=== PATIENT | female | born 2000 | race Caucasian/White ===

== ENCOUNTER 2018-11-23 19:08 | Inpatient (IN) | payer MEDICAID ==
[~2018-11-23] VITALS: Ht 165.1 cm; Wt 112.6 kg
[2018-11-23 20:17] VITALS: Ht 165.1 cm; Wt 112.6 kg
[2018-11-23] MEDS ORDERED: PREN-93 PO (20:17)
[2018-11-23 20:18] VITALS: BP 116/71; PULSE 96; RESP 20
[2018-11-23] MEDS ORDERED: LACTATED RINGER'S 1,000 ML IV PRN (20:36)
[2018-11-23] MEDS ORDERED: OXYTOCIN 30 UNITS/LR 500 ML IV PRN (21:00)
[2018-11-23] MEDS ORDERED: IBUPROFEN 600 MG TAB PO PRN (21:00)
[2018-11-23] MEDS ORDERED: AMPICILLIN 2 GM/NS (PMX) 100 ML IV ONE (21:00)
[2018-11-23] MEDS ORDERED: OXYTOCIN 30 UNITS/LR 500 ML IV SCH ×2 (21:00)
[2018-11-23] MEDS ORDERED: MISOPROSTOL 200 MCG TAB PR PRN (21:00)
[2018-11-23] MEDS ORDERED: LIDOCAINE 1% (MPF) 30 ML INJ INJ PRN (21:00)
[2018-11-23] MEDS ORDERED: METHYLERGONOVINE 0.2 MG INJ IM PRN (21:00)
[2018-11-23] MEDS ORDERED: LACTATED RINGER'S 1,000 ML IV ONE (21:00)
[2018-11-23] MEDS ORDERED: BUTORPHANOL 2 MG INJ IV PRN ×2 (21:00)
[2018-11-23] MEDS ORDERED: CARBOPROST 250 MCG INJ IM PRN (21:00)
[2018-11-23] MEDS: LACTATED RINGER'S 1,000 ML IV SCH (21:17)
--- NOTE | 2018-11-23 21:44 | TRIAGE ---
OB Triage Datetime Report Generated by CPN: 11/23/2018 21:44 Datetime: 11/23/2018 21:00 Labor Evaluation Frequency: 2-5 Monitor Mode: External Duration (sec)2399: 30-90 Quality: Mild Pattern: Normal: <= 5 Contractions in 10 Minutes Resting Tone [place]: Relaxed Heart Rate FHR Baseline Rate: 150 Monitor Mode: External US Variability: Moderate 6-25 bpm Accelerations: 15X15 Decelerations: Variable Category: Category II Pain Assessment Pain Scale: 5 Pain Presence: Intermittent Pain Type: Contraction Pain Location: Abdomen Pain Relief Measures: Comfort Measures Datetime: 11/23/2018 20:44 Interventions: IV Bolus Datetime: 11/23/2018 20:30 Labor Evaluation Frequency: irreg Monitor Mode: External Duration (sec)2399: 30-70 Quality: Mild Pattern: Normal: <= 5 Contractions in 10 Minutes Resting Tone [place]: Relaxed Heart Rate FHR Baseline Rate: 160 Monitor Mode: External US Variability: Moderate 6-25 bpm Accelerations: 15X15 Decelerations: Variable Category: Category II Comments: reviewed ny dr ardalan Datetime: 11/23/2018 20:26 Membrane Status: Ruptured Datetime: 11/23/2018 20:24 Vaginal Exam Dilatation (cms): 4.0 Effacement (%): 90 Station: -2 Exam By: margie Membrane Status: Ruptured Amniotic Fluid Amount: Small Vaginal Bleeding: None Pool: Positive Nitrazine: Positive Cervix, Consistency: Soft Cervix, Position: Midposition Presentation 'A': Cephalic Datetime: 11/23/2018 20:14 Assessment Type: Triage Maternal Assessment Level of Consciousness: Keenly Alert, Responsive DTR's/Clonus: DTRs 2+; No Clonus Headache: Denies Blurred Vision: No Respiratory Effort: Unlabored; Regular Rhythm; Equal Expansion Breath Sounds, Left: Clear and Equal Breath Sounds, Right: Clear and Equal Nausea/Vomiting: Denies RUQ Epigastric Pain: Denies Lower Extremities Edema: None Degree: None Upper Extremities Edema: None Degree: None Facial Edema: None Fall Risk Assessment History of Falling: (0) No Secondary Diagnosis: (0) No Ambulatory Aid: (0) Bedrest/Nurse Assist IV Therapy: (0) No Gait: (0) Normal/Bedrest/Immobile Mental Status: (0) Oriented to Own Ability Fall Score: 0 Fall Risk Score Definition: No Risk: No action required Datetime: 11/23/2018 20:13 Pain Assessment Pain Scale: 3 Pain Presence: Intermittent Pain Type: Contraction Pain Location: Abdomen Pain Goal: 3 Pain Relief Measures: Comfort Measures Datetime: 11/23/2018 20:01 Time of Arrival: 11/23/2018 19:00 EGA: 38.3 Arrived By: Ambulatory Arrived From: Home Chief Complaint: vaginal leaking Movement: Present Contractions: Irregular Time Contractions Began: 11/23/2018 18:20 Contractions: 15 MIN Rupture of Membranes: Unsure Vaginal Bleeding: None Vaginal Discharge: Denies Recent Sexual Intercouse: Denies Abdominal Trauma: Not Applicable Patient Complaints: Contractions Time Provider Notified: 11/23/2018 20:26 Provider Notified: ZULMA Initial Plan: RILEY MCCALL
[2018-11-24] MEDS ORDERED: AMPICILLIN 1 GM/NS (PMX) 50 ML IV SCH (01:00)
[2018-11-24] MEDS ORDERED: MINERAL OIL LIGHT 10 ML VIAL TOP ONE (01:30)
--- NOTE | 2018-11-24 01:34 | LDN ---
Date/Time of Note Date/Time of Note DATE: 11/24/18 TIME: 01:34 Delivery Summary November 24, 2018 Weeks of Gestation 38 weeks and 3 days Placenta Delivered: Spontaneously Meconium: Light Episiotomy: No Indication for episiotomy N.A Perineal laceration: 1 Laceration repair: first degree perineal and Bilateral labial laceration noted and repaired using 2-0 and 3-0 chromic Anesthesia type: None Estimated blood loss: 500 Sponge & Needle done & correct: Yes All needle counts correct: Yes Any foreign bodies felt in the: No Infant Delivery Information Sex Sex: female Apgars 1 Minute: 8 5 Minute: 9 Suctioning Nose & mouth suctioned at jakob: Yes Delee suction performed: Yes Umbilical Cord Umbilical cord with: 3 Vessels Cord presentations: no nuchal cord Cord Blood was obtained: Yes Mother & Baby Disposition Disposition Placenta delivered complete and intact. Fundus was firm. Hemostasis complete. Initially heavy bleeding noted and controlled using uterine massage SHEILA KAT MD Nov 24, 2018 01:34
--- NOTE | 2018-11-24 01:46 | HP ---
Date/Time of Note Date/Time of Note DATE: 11/24/18 TIME: 01:42 OB - History Hx of Present Free Text/Dictation late entry note for exam done for : 1 Para: 0 Spontaneous : 0 Therapeutic : 0 Other Concerns: 18-year-old G1, P0 with IUP at 38 weeks and 3 days presented after she had a spontaneous rupture membrane at 1800 10 PM. She was noted initially to have tachycardia in the range of 160s that resolved after IV hydration. Patient denies any fever or chills. 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 She was admitted for management of labor. Patient denies any complication during course. records reviewed. Unremarkable. Past Family/Social History * Past Medical, Surgical, Family and Obstetric Histories reviewed from chart. OB Admission Exam Vital Signs Vital Signs Vital Signs Date Temp Pulse Resp B/P (MAP) Pulse Ox O2 O2 Flow FiO2 Time Delivery Rate 11/23/18 98.5 96 20 116/71 Room Air 20:18 (86) Physical Exam HEENT: WNL Lungs: Clear Abdomen: WNL Extremities: Normal Cervical Dilatation: 3cm Effacement: 75% Station: -1 Amniotic Fluid: Clear Accelerations: Accelerations Present Decelerations: No Decelerations Varibility: Moderate Contractions on Admission: < 5 Minutes Apart Intensity: Moderate ( tachycardia noted when presented to labor and delivery. heart rates in the range of 160s. 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
[2018-11-24 02:00] VITALS: BP 118/69; PULSE 79; RESP 18
[2018-11-24] MEDS ORDERED: OXYTOCIN 30 UNITS/LR 500 ML IV SCH (02:20)
[2018-11-24] MEDS ORDERED: HYDROCODONE/APAP (5/325) TAB PO PRN (02:30)
[2018-11-24] MEDS ORDERED: MISOPROSTOL 200 MCG TAB PR PRN (02:30)
[2018-11-24] MEDS ORDERED: NACL 0.9% 3 ML SYG IV SCH (02:30)
[2018-11-24] MEDS ORDERED: OXYTOCIN 30 UNITS/LR 500 ML IV PRN (02:30)
[2018-11-24] MEDS ORDERED: CARBOPROST 250 MCG INJ IM PRN (02:30)
[2018-11-24] MEDS ORDERED: ACETAMINOPHEN 325 MG TAB PO PRN (02:30)
[2018-11-24] MEDS ORDERED: DIPHENHYDRAMINE 25 MG CAP PO PRN (02:30)
[2018-11-24] MEDS ORDERED: WITCH HAZEL/GLYCERIN PAD PR PRN (02:30)
[2018-11-24] MEDS ORDERED: ZOLPIDEM 5 MG TAB PO PRN (02:30)
[2018-11-24] MEDS ORDERED: LANOLIN HPA 1 PKT TOP PRN (02:30)
[2018-11-24] MEDS ORDERED: ONDANSETRON 4 MG INJ IV PRN (02:30)
[2018-11-24 04:00] VITALS: BP 108/61; PULSE 85; RESP 18
[2018-11-24] MEDS: LACTATED RINGER'S 1,000 ML IV SCH ×2 (04:36→12:36)
[2018-11-24] MEDS: IBUPROFEN 600 MG TAB PO SCH ×3 (06:10→18:03)
[2018-11-24 08:15] VITALS: BP 106/59; PULSE 83; RESP 16
[2018-11-24] MEDS: SENNA/DOCUSATE NA (8.6MG/50MG) TAB PO SCH ×2 (09:31→21:42)
--- NOTE | 2018-11-24 14:52 | QN ---
Documentation Comment Denies any complaint. Breast-feeding. Ambulating. Denies any dizziness or lightheadedness, denies any shortness of breath or chest pain. Physical examination General appearance: Alert and oriented x4. Abdomen: Soft, fundus palpable firm 3 to 4 cm below the umbilicus and nontender Breast: No evidence of mastitis or fissure Extremities: 2+ bilateral symmetric edema, no calf tenderness, no cord palpable VS - Last 72 Hours, by Label Date Temp Pulse Resp B/P (MAP) Pulse Ox O2 O2 Flow FiO2 Time Delivery Rate 11/24/18 98.1 83 16 106/59 Room Air 08:15 (75) 11/24/18 98.2 85 18 108/61 Room Air 04:00 (77) 11/24/18 98.4 79 18 118/69 Room Air 02:00 (85) 11/23/18 98.5 96 20 116/71 Room Air 20:18 (86) Assessment Status post day #0, hemorrhage, doing well, asymptomatic Follow-up with CBC tomorrow Routine care SHEILA KAT MD Nov 24, 2018 14:51
[2018-11-24 17:12] VITALS: BP 93/51; PULSE 81; RESP 18
[2018-11-24 20:00] VITALS: BP 116/65; PULSE 84; RESP 20
[2018-11-25] MEDS: IBUPROFEN 600 MG TAB PO SCH ×5 (00:05→23:34)
[2018-11-25 04:57] VITALS: BP 126/87; PULSE 93; RESP 20
[2018-11-25 08:00] VITALS: BP 104/55; PULSE 72; RESP 18
[2018-11-25] MEDS: SENNA/DOCUSATE NA (8.6MG/50MG) TAB PO SCH ×2 (08:32→21:31)
--- NOTE | 2018-11-25 11:42 | PN ---
Date/Time of Note Date/Time of Note DATE: 11/25/18 TIME: 11:37 OB Subjective Subjective Subjective no c/o no b.m yet OB Objective Objective Objective Vss afebrile fundus firm lochia min calf neg for tenderness OB Assessment/Plan Other Assessment: A stable post Plan: Other (discharge home in am which is recommened by Ped due to GBS status) JOSE PERSAUD MD Nov 25, 2018 11:42
[2018-11-25 16:00] VITALS: BP 107/59; PULSE 73; RESP 18
[2018-11-25 19:50] VITALS: BP 104/55; PULSE 73; RESP 18
[2018-11-26 03:50] VITALS: BP 114/59; PULSE 71; RESP 18
[2018-11-26] MEDS: IBUPROFEN 600 MG TAB PO SCH ×3 (05:43→18:20)
[2018-11-26 08:00] VITALS: BP 103/55; PULSE 77; RESP 18
[2018-11-26] MEDS ORDERED: DIPHTH/TET/ACEL PERTUSS (ADULT) 0.5 ML VIAL IM* ONE (09:00)
[2018-11-26] MEDS ORDERED: MEASLES,MUMPS,RUBELLA VACCINE INJ SC* ONE (09:00)
[2018-11-26] MEDS ORDERED: VARICELLA VACCINE LIVE/PF 1,350 UNIT/0.5 ML ML SC* ONE (09:00)
[2018-11-26] MEDS: SENNA/DOCUSATE NA (8.6MG/50MG) TAB PO SCH (09:00)
[2018-11-26 15:52] VITALS: BP 120/83; PULSE 68; RESP 18
--- NOTE | 2018-11-26 18:12 | DS ---
Date/Time of Note Date/Time of Note DATE: 11/26/18 TIME: 18:10 Obstetrical Discharge Record Final Diagnosis Final Diagnosis: Term delivered Other Final Diagnosis day #2 Status post Patient stable and afebrile Vital signs stable VS - Last 72 Hours, by Label Date Temp Pulse Resp B/P (MAP) Pulse Ox O2 O2 Flow FiO2 Time Delivery Rate 11/26/18 98.6 68 18 120/83 15:52 (95) 11/26/18 98.6 77 18 103/55 Room Air 08:00 (71) 11/26/18 98.6 77 18 103/55 08:00 (71) 11/26/18 97.7 71 18 114/59 Room Air 03:50 (77) 11/25/18 98.1 73 18 104/55 Room Air 19:50 (71) 11/25/18 98.1 73 18 107/59 Room Air 16:00 (75) 11/25/18 98.0 72 18 104/55 Room Air 08:00 (71) 11/25/18 98.1 93 20 126/87 Room Air 04:57 (100) 11/24/18 98.4 84 20 116/65 Room Air 20:00 (82) 11/24/18 98.4 81 18 93/51 (65) 17:12 11/24/18 98.1 83 16 106/59 Room Air 08:15 (75) 11/24/18 98.2 85 18 108/61 Room Air 04:00 (77) 11/24/18 98.4 79 18 118/69 Room Air 02:00 (85) 11/23/18 98.5 96 20 116/71 Room Air 20:18 (86) Hematology - 72 Hrs Test 11/23/18 20:40 11/24/18 12:43 Hematocrit 36.5 % (37.0-47.0) L 33.0 % (37.0-47.0) L Hemoglobin 12.1 g/dl (12.0-16.0) 10.5 g/dl (12.0-16.0) L Mean Corpuscular 29.7 pg (29.0-33.0) 29.0 pg (29.0-33.0) Hemoglobin Mean Corpuscular 33.2 g/dl (32.0-37.0) 31.8 g/dl (32.0-37.0) L Hemoglobin Concent Mean Corpuscular Volume 89.5 fl (72.0-104.0) 91.2 fl (72.0-104.0) Mean Platelet Volume 11.2 fl (7.4-10.4) H 11.0 fl (7.4-10.4) H Platelet Count 247 10^3/UL (140-415) 221 10^3/UL (140-415) Red Blood Count 4.08 10^6/ul (4.20-5.40) 3.62 10^6/ul (4.20-5.40) L L Red Cell Distribution 13.4 % (11.5-14.5) 13.4 % (11.5-14.5) Width White Blood Count 12.9 10^3/ul (4.8-10.8) 13.2 10^3/ul (4.8-10.8) H H Abdomen soft, fundus firm Perineum intact Extremities nontender Assessment and plan Patient stable and doing well Plan to discharge home Patient instructed to follow-up with [facility] in 2 and 6 weeks Condition on Discharge Physical Assessment Last Vitals: VS - Last 72 Hours, by Label Date Temp Pulse Resp B/P (MAP) Pulse Ox O2 O2 Flow FiO2 Time Delivery Rate 11/26/18 98.6 68 18 120/83 15:52 (95) 11/26/18 98.6 77 18 103/55 Room Air 08:00 (71) 11/26/18 98.6 77 18 103/55 08:00 (71) 11/26/18 97.7 71 18 114/59 Room Air 03:50 (77) 11/25/18 98.1 73 18 104/55 Room Air 19:50 (71) 11/25/18 98.1 73 18 107/59 Room Air 16:00 (75) 11/25/18 98.0 72 18 104/55 Room Air 08:00 (71) 11/25/18 98.1 93 20 126/87 Room Air 04:57 (100) 11/24/18 98.4 84 20 116/65 Room Air 20:00 (82) 11/24/18 98.4 81 18 93/51 (65) 17:12 11/24/18 98.1 83 16 106/59 Room Air 08:15 (75) 11/24/18 98.2 85 18 108/61 Room Air 04:00 (77) 11/24/18 98.4 79 18 118/69 Room Air 02:00 (85) 11/23/18 98.5 96 20 116/71 Room Air 20:18 (86) Voiding: Yes Bowel Movement: Yes Breast: Soft, non-tender Fundus: Firm Calf Tenderness: No Patient Condition: Good Copies To: CC: RYANNE MAYA BAHAREH MD Nov 26, 2018 18:12
--- NOTE | 2018-11-27 19:09 | DELSUM ---
Delivery Summary A-C Datetime Report Generated by CPN: 11/27/2018 19:09 DELIVERY PERSONNEL Disassembler: Tersigni, Sandy MATERNAL INFORMATION Delivery Anesthesia: Local Medications in Delivery: LR with 30 units of pitocin Delivery QBL (ml): 500 Placenta Cultured: No Maternal Complications: None LABOR SUMMARY EDC: 12/04/2018 00:00 No. Babies in Womb: 1 Attempted: No Labor Anesthesia: None LABOR INFORMATION Reason for Induction: Not Applicable Onset of Labor: 11/23/2018 18:10 Complete Dilatation: 11/23/2018 23:14 Group B Beta Strep: Positive Antibiotics # of Doses: 1 Antibiotics Time of Last Dose: 11/23/2018 21:21 Steroids Given: None Reason Steroids Not Administered: Not Applicable MEMBRANES Membranes Rupture Method: Spontaneous Rupture of Membranes: 11/23/2018 18:10 Length of Rupture (hr): 5.22 Amniotic Fluid Color: Clear Amniotic Fluid Amount: Small Amniotic Fluid Odor: None STAGES OF LABOR Stage 1 hr: 5 Stage 1 min: 4 Stage 2 hr: 0 Stage 2 min: 9 Stage 3 hr: 0 Stage 3 min: 4 Total Time in Labor hr: 5 Total Time in Labor min: 17 VAGINAL DELIVERY Episiotomy: None Laceration Extension: Second Degree Laceration Type: Perineal; Vaginal Laceration Repair: Yes Initial Vag Sponge Count: 10+10 Final Vag Sponge Count: 20 Initial Vag Sharps Count: 1+1 Final Vag Sharps Count: 2 Sponge Count Correct: Yes; Vaginal Sweep Performed Sharps Count Correct: Yes BABY A INFORMATION Infant Delivery Date/Time: 11/23/2018 23:23 Method of Delivery: Vaginal Born in Route : No : N/A Forceps: N/A Vacuum Extraction: N/A (Annotations: Data stored by N on behalf of user) Shoulder Dystocia : N/A SHOULDER DYSTOCIA BABY A Delivery Date/Time: 11/23/2018 23:23 PRESENTATION/POSITION BABY A Presentation: Cephalic Cephalic Presentation: Vertex (Annotations: Data stored by CPN on behalf of user) Vertex Position: Left Occipital Anterior Breech Presentation: N/A PLACENTA INFORMATION BABY A Placenta Delivery Time : 11/23/2018 23:27 Placenta Method of Delivery: Expressed Placenta Status: Delivered SCORES BABY A Heart Rate 1 min: >100 bpm Resp Effort 1 min: Good Cry Reflex Irritability 1 min: Cough/Sneeze/Pulls Away Muscle Tone 1 min: Active Motion Color 1 min: Blue/Pale Resuscitation Effort 1 min: Tactile Stimulation; Oxygen SCORE 1 MIN: 8 Heart Rate 5 min: >100 bpm Resp Effort 5 min: Good Cry Reflex Irritability 5 min: Cough/Sneeze/Pulls Away Muscle Tone 5 min: Active Motion Color 5 min: Body [place], Extremit Blue Resuscitation Effort 5 min: Tactile Stimulation; Oxygen SCORE 5 MIN: 9 INFORMATION BABY A Gestational Age at Delivery: 38.3 Gestational Status: Early Term- 37- 38.6 Weeks Infant Outcome : Liveborn, with signs of life Condition : Stable Sex: Female IDENTIFICATION/MEDS BABY A ID Band Number: [id number] ID Band Location: Right Leg; Left Arm Sensor Applied: Yes Sensor Number: [id number] Sensor Location : Cord Clamp Vitamin K Given : Not Given Erythromycin Given: Not Given WEIGHT/LENGTH BABY A Infant Birthweight (gm): 4415 Weight (lb): 9 Infant Weight (oz): 12 Length (in): 20.50 Infant Length (cm): 52.07 CORD INFORMATION BABY A No. Cord Vessels: 3 Nuchal Cord : N/A Cord Blood Taken: Yes Suction: Mouth; Nose ASSESSMENT BABY A Complications: None Physical Findings at Delivery: Molding of the Head; Within Normal Limits Infant Respirations: Appears Normal Security Sme/ALS Called : Yes Infant Care By: MEAGAN HAGER/MARIANO HAGER Transferred To: Remains with Mother
== END 2018-11-26 19:09 | disposition home or self-care (01) | DRG 806 ==
LOC: L-D 19:08 → OBT 19:08 → L-D 19:48 → OBT 20:32 → L-D 21:29 → PP1 11-24 01:40
PROVIDERS: ADMIT Obstetrics & Gynecology; ATTEND Obstetrics & Gynecology
PROC: 10E0XZZ Delivery of Products of Conception, External Approach (ICD-10-PCS; principal; 2018-11-24)
PROC: 0HQ9XZZ Repair Perineum Skin, External Approach (ICD-10-PCS; 2018-11-24)
DX: O76 Abnormality in fetal heart rate and rhythm complicating labor and delivery (principal); O72.1 Other immediate postpartum hemorrhage; O99.824 Streptococcus B carrier state complicating childbirth; O77.0 Labor and delivery complicated by meconium in amniotic fluid; O70.0 First degree perineal laceration during delivery; Z37.0 Single live birth; Z3A.38 38 weeks gestation of pregnancy
CPT/HCPCS: 85025; 85610; 85730; 86592; 86762; 86850; 86900; 86901; 87340; 90716; G0463; J0290; J2590; J7120